=== PATIENT | male | born 1960 | race Caucasian/White ===

== ENCOUNTER 2023-06-08 03:52 | Emergency (ER) | payer BC, SELFPAY ==
[2023-06-08] VITALS (9 sets, daily range): BP systolic 128–149; BP diastolic 71–93; BMI 25.7
--- NOTE | 2023-06-08 04:36 | ED.GENMED ---
History of Present Illness
<ADRIANA Garcia - Last Filed: 06/08/23 05:14>
General
Chief Complaint: Bowel Problem
Source: patient and spouse
Time Seen by Provider: 06/08/23 04:36
Travel History
Have you had any contact with someone who has COVID-19?: No
Do you have any symptoms of coronavirus? Fever > 100 degrees, chills, cough, shortness of breath, sore throat, loss of taste or smell, muscle aches, or headache?: No
History of Present Illness
History of Present Illness:
Pt is a 63 year old male with a PMH of HTN presenting is moderate distress for constipation x 3 days and lower abdominal pain. He also notes he has been unable to pass gas. He states the pain began this morning and has worsened throughout the day.
He notes the pain is now a 10/10, constant, and mostly located in his right lower quadrant, but states the discomfort is generalized across his lower abdomen as well. He states he tried drinking a lot of water prior to coming in but was still unable
to have a bowel movement. Upon further questioning the pt was unsure if he was able to urinate. Pt denies recent travel, SOB, chest pain, nausea, vomiting, or urinary symptoms. Pt recently had a dental surgery but denies taking any narcotics after
his procedure. Pt states he takes Altoran and amlodipine for his HTN and denies any allergies. He has a 30 year smoking history but quick 2 weeks ago.
Review of Systems
<ADRIANA Garcia - Last Filed: 06/08/23 05:14>
Review of Systems
Allergies reviewed?: Yes
Constitutional: Reports no symptoms
EENT: Reports no symptoms
Respiratory: Reports no symptoms
Cardiac: Reports no symptoms
ABD/GI: Reports abdominal pain, constipated and pain
: Reports no symptoms
Musculoskeletal: Reports no symptoms
Skin: Reports no symptoms
Neurological: Reports no symptoms
Endocrine: Reports no symptoms
Hematologic/Lymphatic: Reports no symptoms
Psychiatric: Reports no symptoms
Phy Exam
<ADRIANA Garcia - Last Filed: 06/08/23 05:14>
General Physical Exam
General Presentation: moderate distress
General age: appears stated age
General Skin: warm and dry
General Habitus: normal
General Mental: alert
General Hydration: appears well hydrated
Cardiovascular Exam
Cardiovascular Exam: regular rate/rhythm and no edema
Pulmonary Exam
Breath Sounds: Wheeze: generalized
Gastrointestinal Exam
Gastrointestinal Exam: normal bowel sounds, distended (Large distended bladder noted) and tender
Palpation: generalized: Moderate tenderness
Auscultation of Abdomen: normal
Neurological Exam
Neurological Exam: alert and oriented x3
Skin Exam
Skin Exam: normal color and warm/dry
Psychiatric Exam
Psychiatric Exam: normal mood/affect
Course
<ADRIANA Garcia - Last Filed: 06/08/23 05:14>
Orders/Labs/Results
Orders:
Orders
06/08/23 04:57
Bladder Scan- Treatment ONCE
06/08/23 04:58
Morphine Sulfate 4 mg IV NOW STA
06/08/23 05:19
Complete Blood Count/With Diff Urgent
Comprehensive Metabolic Panel Urgent
06/08/23 05:20
Urinalysis Reflex To Culture Urgent
Date Specimen was Collected: 06/08/23
Time Specimen was Collected: 05:19
06/08/23 05:40
CR Obstruct Series W/pa Chest Urgent
Comment:
Reason For Exam: constipation x 3 days, acute urinary retention
06/08/23 06:57
Enema- Treatment ONCE
Type: Milk of Molasses
Abnormal Lab Results
06/08/23 06/08/23
05:19 05:20
WBC 11.9 H 10^3/uL
(4.8-10.8)
RBC 4.28 L 10^6/uL
(4.70-6.10)
Hct 35.8 L %
(39.0-52.0)
MCH 31.1 H pg
(27.0-31.0)
MCHC 37.2 H g/dL
(33.0-37.0)
Abs Immat Gran (auto) 0.1 H 10^3/uL
(0-0.05)
Absolute Neuts (auto) 10.0 H 10^3/uL
(1.4-6.5)
Absolute Lymphs (auto) 1.0 L 10^3/uL
(1.2-3.4)
Absolute Monos (auto) 0.8 H 10^3/uL
(0.1-0.6)
Immature Gran % 0.7 H %
(0-0.5)
Neutrophils % 83.8 H %
(42.2-75.2)
Lymphocytes % 8.3 L %
(20.5-51.1)
Sodium 126 L mmol/L
(135-145)
Chloride 89 L mmol/L
(98-107)
Carbon Dioxide 21 L mmol/L
(22-30)
Creatinine 0.6 L mg/dL
(0.7-1.3)
Glucose 174 H mg/dl
(70-99)
Urine Glucose 1+ A
(Negative)
06/08/23 05:19
06/08/23 05:19
Vital Signs
Initial and Last Documented VS:
Initial Vital Signs
Temp Pulse Resp BP Pulse Ox
98.2 F 84 19 136/76 100
06/08/23 03:57 06/08/23 03:57 06/08/23 03:57 06/08/23 03:57 06/08/23 03:57
Last Documented Vital Signs
Temp Pulse Resp BP Pulse Ox
97.6 F 82 16 146/71 99
06/08/23 06:45 06/08/23 06:45 06/08/23 06:45 06/08/23 06:45 06/08/23 06:45
<Deena Wilkes DO - Last Filed: 06/08/23 07:14>
Orders/Labs/Results
Orders:
Orders
06/08/23 04:57
Bladder Scan- Treatment ONCE
06/08/23 04:58
Morphine Sulfate 4 mg IV NOW STA
06/08/23 05:19
Complete Blood Count/With Diff Urgent
Comprehensive Metabolic Panel Urgent
06/08/23 05:20
Urinalysis Reflex To Culture Urgent
Date Specimen was Collected: 06/08/23
Time Specimen was Collected: 05:19
06/08/23 05:40
CR Obstruct Series W/pa Chest Urgent
Comment:
Reason For Exam: constipation x 3 days, acute urinary retention
06/08/23 06:57
Enema- Treatment ONCE
Type: Milk of Molasses
Abnormal Lab Results
06/08/23 06/08/23
05:19 05:20
WBC 11.9 H 10^3/uL
(4.8-10.8)
RBC 4.28 L 10^6/uL
(4.70-6.10)
Hct 35.8 L %
(39.0-52.0)
MCH 31.1 H pg
(27.0-31.0)
MCHC 37.2 H g/dL
(33.0-37.0)
Abs Immat Gran (auto) 0.1 H 10^3/uL
(0-0.05)
Absolute Neuts (auto) 10.0 H 10^3/uL
(1.4-6.5)
Absolute Lymphs (auto) 1.0 L 10^3/uL
(1.2-3.4)
Absolute Monos (auto) 0.8 H 10^3/uL
(0.1-0.6)
Immature Gran % 0.7 H %
(0-0.5)
Neutrophils % 83.8 H %
(42.2-75.2)
Lymphocytes % 8.3 L %
(20.5-51.1)
Sodium 126 L mmol/L
(135-145)
Chloride 89 L mmol/L
(98-107)
Carbon Dioxide 21 L mmol/L
(22-30)
Creatinine 0.6 L mg/dL
(0.7-1.3)
Glucose 174 H mg/dl
(70-99)
Urine Glucose 1+ A
(Negative)
06/08/23 05:19
06/08/23 05:19
Vital Signs
Initial and Last Documented VS:
Initial Vital Signs
Temp Pulse Resp BP Pulse Ox
98.2 F 84 19 136/76 100
06/08/23 03:57 06/08/23 03:57 06/08/23 03:57 06/08/23 03:57 06/08/23 03:57
Last Documented Vital Signs
Temp Pulse Resp BP Pulse Ox
97.6 F 82 16 146/71 99
06/08/23 06:45 06/08/23 06:45 06/08/23 06:45 06/08/23 06:45 06/08/23 06:45
[place];ADRIANA Garcia - Last Filed: 06/08/23 05:14>
MDM/Problems Addressed
Differential Diagnosis Includes:
bladder outlet obstruction, constipation, ischemic bowel, small bowel obstruction
MDM/Problems Addressed:
lower abdominal pain
Chronic conditions affecting care: HTN
<ADRIANA Garcia - Last Filed: 06/08/23 05:14>
*Critical Care Note
Total Time (30-74mins, 75-104mins- exclusive of procedures): Not Applicable
<Deena Wilkes DO - Last Filed: 06/08/23 07:14>
*Radiology
Radiology exam reviewed: preliminary read by ED provider (Instructions series shows moderate stool burden at the rectum. No obstruction or free air.)
*Pulse Oximetry
Patient hypoxic: no
ED Attending Note
<ADRIANA Garcia - Last Filed: 06/08/23 05:14>
-
Portions of this chart may have been created with voice recognition software.� Occasional wrong word or��sound alike� substitutions may have occurred due to the inherent limitations of voice recognition software.
<Deena Wilkes DO - Last Filed: 06/08/23 07:14>
ED Attending Note
Patient seen and examined by attending physician: Yes
I performed the substantive portion of visit, reviewed & personally made and approve the management plan that is documented in note by myself or EMMANUEL.: Yes
I performed a history and physical exam of patient and discussed management with resident, I reviewed resident's note and agree with documented findings and plan of care.: Yes
ED Attending Note:
This is a 63-year-old gentleman who has history of hypertension maintained on 2 antihypertensive medications. He underwent dental surgery 2 weeks ago and overall has been feeling well, has not required narcotic pain medication but presents with
3-day history of constipation which is unlike him, generally passes a bowel movement every day. Tonight he developed severe, progressive lower abdominal pain, bloating, unrelieved with attempting to pass a bowel movement. He did attempt to drink
several glasses of water tonight which she feels has worsened his predicament. He does admit to significant urinary urge but inability to void.
He denies nausea nor vomiting, denies back pain or flank pain, no fever nor chills. No history of similar episodes in the past.
He has not attempted an enema nor stool softeners.
GENERAL: 63-year-old gentleman appears his stated age, awake and alert, appears in moderate distress related to pain. Somewhat restless but cooperative. Afebrile. Normotensive.
EYE: anicteric
NECK: Supple, nontender, no meningismus, no significant adenopathy.
ENT: oral mucosa is moist. No rhinorrhea.
CARDIAC: Regular rate and rhythm. no murmur.
LUNGS: Clear breath sounds bilaterally, no acute respiratory distress, no wheezes/rales/rhonchi
ABDOMEN: Soft, moderate tenderness over palpably significantly distended bladder.mild to moderate guarding of suprapubic region but no rebound. No cvat. normoactive BS.
NEUROLOGICAL: Alert and oriented x3, no focal neuro deficits.
SKIN: Warm and dry, normal color, skin intact. No rash.
MUSCULOSKELETAL: No C/C/E. peripheral pulses are full and equal b/l. No palpable tenderness.
PSYCH: Mildly anxious related to pain. Cooperative.
Exam quite concerning for acute urinary retention. Patient is in moderate distress.
Other consideration is severe constipation, diverticulitis, appendicitis, acute abdomen.
Will check bedside bladder scan and if large volume within the bladder we will plan for Ghosh catheter insertion. Will check labs, urinalysis.
Will medicate for pain with IV morphine.
Will plan on imaging depending on results.
Update:
Bladder scan shows greater than 1000 cc in the bladder. Ghosh catheter inserted by nursing staff without difficulty and has drained 1400 cc of pale, clear yellow urine with complete relief of abdominal discomfort.
Patient is now resting comfortably and has not required IV pain medication.
Abdomen is now soft, nontender. There is moderate firm stool palpable left lower quadrant without tenderness.
As patient has no prior history of acute urinary retention. This may have occurred due to acute constipation thus will check obstruction series.
Labs are pending.
Preliminary urinalysis is unremarkable. No evidence of UTI.
06/08/2023 0619 AM
Patient remains comfortable.
Abdomen is soft and nontender.
Labs show minimally elevated white blood cell count of 11.9. Mild hyponatremia at 126. Patient does admit to significant water consumption yesterday which may be a factor.
Mildly elevated random glucose of 174.
Obstruction series is pending.
06/08/2023 0706 AM
Patient remains comfortable. Ghosh catheter draining clear yellow urine.
Obstruction series shows moderate amount of stool within the rectosigmoid. No obstruction or free air.
Will plan for enema in the ED and thereafter discontinue Ghosh catheter and discharge to home.
Patient does admit that he gets up at least 3 times at night to urinate but denies urinary hesitancy nor a sense of difficulty emptying his bladder.
He also admits to drinking a fair amount of water on a daily basis and states routine blood work 2 months ago showed mild hyponatremia.
Will add Flomax at at bedtime and recommend follow-up with urology for further evaluation.
Discharge Plan
Departure
Patient Disposition: Home (Routine Discharge)
Date of Disposition: 06/08/23
Time of Disposition: 07:13
Patient with high blood pressure during this ER visit?: No
Condition: Good
Discharge Problem:
Acute urinary retention, Acute constipation
Instructions: Constipation, Adult (DC), Urinary Retention (DC)
Prescriptions:
New
tamsulosin [Flomax] 0.4 mg capsule
0.4 mg PO HS Qty: 30 0RF
Referrals:
Kathleen Mittal DO [Family Provider] -
Cheng Linder MD [Active] - Call in 1-3 days for appt
Interventions
Interventions:
*Risk Screen - Suicide Last Done: 06/08/23 03:57
*General Assessment Last Done: 03/21/24 03:57
*Neglect/Abuse Screening Last Done: 06/08/23 03:57
ED- Fall Risk Assessment Last Done: 06/08/23 04:03
*ED COVID-19 Vaccine History Last Done: 06/08/23 03:57
WO-Rczliu-Lgjrzdmmeh Assessment Last Done: 06/08/23 06:45
[2023-06-08 05:32] LABS: % Basophils 0.3 % (0-2); % Eosinophils 0.3 % (0-6); % Immature Granulocytes 0.7 % (0-0.5); % Lymphocytes 8.3 % (20.5-51.1); % Monocytes 6.6 % (1.7-9.3); % Neutrophils 83.8 % (42.2-75.2); Absolute Immature Granulocytes 0.1 10^3/uL (0-0.05); Absolute Monocytes 0.8 10^3/uL (0.1-0.6); Hematocrit 35.8 % (39.0-52.0); Hemoglobin 13.3 g/dL (13.0-18.0); Mean Corp Hgb Conc. 37.2 g/dL (33.0-37.0); Mean Corpuscular Hgb 31.1 pg (27.0-31.0); Mean Corpuscular Volume 83.6 fL (80.0-94.0); Mean Platelet Volume 8.6 fL (7.4-10.4); Nucleated Red Blood Cells % 0 % (-); Platelet Count 375 10^3/uL (130-400); Red Blood Cell Count 4.28 10^6/uL (4.70-6.10); White Blood Cell Count 11.9 10^3/uL (4.8-10.8)
[2023-06-08 05:32] LABS: Urine Albumin Negative (Neg - Trace); Urine Bilirubin Negative (Negative); Urine Character Clear (Clear); Urine Color Yellow; Urine Glucose 1+ (Negative); Urine Ketone Negative (Negative); Urine Leukocyte Negative (Negative); Urine Nitrite Negative (Negative); Urine Occult Blood Negative (Negative); Urine Specific Gravity 1.005 (<1.030); Urine Urobilinogen Negative (Neg - 1+)
[2023-06-08 05:45] LABS: ALT (SGPT) 23 U/L (0-50); AST (SGOT) 27 U/L (17-59); Albumin 4.6 g/dl (3.5-5.0); Alkaline Phosphatase 60 U/L (38-126); Blood Urea Nitrogen 11 mg/dl (9-20); Calcium 9.9 mg/dl (8.4-10.2); Carbon Dioxide 21 mmol/L (22-30); Chloride 89 mmol/L (98-107); Estimated Creatinine Clearance > 125 ml/min; Glucose 174 mg/dl (70-99); Potassium 3.5 mmol/L (3.5-5.1); Sodium 126 mmol/L (135-145); Total Bilirubin 0.4 mg/dl (0.2-1.3); Total Protein 7.3 g/dl (6.3-8.2); eGFR > 60.00
--- NOTE | 2023-06-08 07:28 | EDRN ---
the pt was received from previous nurse Jacob RN, the pt is resting in stretcher in the lowest position, side rails up x2, call hollis within reach, HOB elevated, no s/s of distress, previous shift lab technician nurse placed a 14 [place] indwelling urinary
catheter for retention, per Dr. Wilkes the pt is to have an enema and after the pt has a bowel movement this RN is to removed indwelling urinary catheter
--- NOTE | 2023-06-08 09:33 | EDRN ---
14 [place] indwelling urinary catheter removed per Dr. Deena Daily verbal orders to remove the catheter once the pt has a bowel movement, catheter removed successfully with no issues
== END 2023-06-08 09:37 | disposition home or self-care (01) ==
LOC: EMR 03:52
PROVIDERS: EMERGENCY PHYSICIAN Emergency Medicine; FAMILY PHYSICIAN Family Medicine
DX: R33.9 Retention of urine, unspecified (principal); K59.00 Constipation, unspecified; R10.31 Right lower quadrant pain; I10 Essential (primary) hypertension; Z87.891 Personal history of nicotine dependence; Z98.890 Other specified postprocedural states
CPT/HCPCS: 99283; 51702; 51798; 74022; 80053; 81003; 85025